=== PATIENT | male | born 1980 | race Caucasian/White ===

== ENCOUNTER 2016-11-06 16:55 | Emergency (ER) | payer OTHER ==
[~2016-11-06] VITALS: Ht 167.6 cm; Wt 67.1 kg
[~2016-11-06 16:55] MED LIST: ALBUTEROL0.09 MG/A2 IH; ANAPROX DS550 MG PO; AUGMENTIN 875875 MG PO; BENADRYL25 MG PO; DAYPRO600 M1 PO; HYDROCODONE BIT1 T11 PO; KEFLEX500 MG PO; MOTRIN600 MG PO; MOTRIN800 MG PO; NORCO 5-325 TA1 EACH PO; PERCOCET 325 MG1 TA6 PO; PRILOSEC20 MG PO; ROBAXIN750 MG PO; TRAMADOL HCL50 MG PO; VICODIN 5/500 505 MG PO; [UNRECOGNIZED DRUG - OTHER] PO
[2016-11-06 17:39] LABS: BASO # 0.1 10*3/uL (0.0-0.1); BASO % 0.6 % (0.0-1.0); EOS # 0.1 10*3/uL (0.0-0.4); EOS % 0.9 % (1.0-4.0); HEMATOCRIT 43.9 % (42.0-52.0); LYMPH % 20.8 % (27.0-41.0); MEAN CELL VOLUME 94.8 fl (80.0-94.0); MEAN CORPUSCULAR HGB 32.4 pg (27.0-31.0); MEAN CORPUSCULAR HGB CONC 34.2 g/dl (33.0-37.0); MEAN PLATELET VOLUME 9.8 fl (9.6-12.3); MONO # 0.6 10*3/uL (0.1-1.0); MONO % 6.6 % (3.0-9.0); NEUT # 6.8 10*3/uL (2.3-7.9); NEUT % 70.8 % (47.0-73.0); PLATELET COUNT AUTOMATED 170 10*3/uL (130-400); RED BLOOD COUNT 4.63 10*6/uL (4.50-5.90); RED CELL DISTRI WIDTH 13.9 % (0-14.5); WHITE BLOOD COUNT 9.7 10*3/uL (4.8-10.8)
[2016-11-06 17:55] LABS: ALBUMIN 3.8 gm/dl (3.1-4.5); ALKALINE PHOSPHATASE 73 U/L (45-117); BILIRUBIN, TOTAL 0.3 mg/dl (0.2-1.0); BUN 12 mg/dl (7-24); CARBON DIOXIDE 30 mmol/L (21-32); CHLORIDE 106 mmol/L (98-107); EST GLOM FILT AFRICAN AMERICAN > 60 ml/min; GLUCOSE 86 mg/dL (65-99); POTASSIUM 3.8 mmol/L (3.5-5.1); SGOT/AST 27 IU/L (3-35); SGPT/ALT 19 U/L (12-78); SODIUM 141 mmol/L (136-145); TOTAL PROTEIN 7.7 gm/dL (6.4-8.2)
[2016-11-06] MEDS ORDERED: CEPHALEXIN500 M1 PO (19:45)
[2016-11-06] MEDS ORDERED: HYDROCODONE BIT1 T11 PO (19:45)
== END 2016-11-06 19:46 | disposition home or self-care (01) ==
LOC: ED 16:55
PROVIDERS: Registered Nurse
DX: N49.2 Inflammatory disorders of scrotum (principal); F17.200 Nicotine dependence, unspecified, uncomplicated; Z79.899 Other long term (current) drug therapy; Z98.890 Other specified postprocedural states

== ENCOUNTER → 2016-11-23 | Outpatient (CLI) | payer OTHER ==
[~2016-11-23] MED LIST changes: +CEPHALEXIN500 M1 PO
== END | disposition home or self-care (01) ==
LOC: US 17:57
DX: N50.89 Other specified disorders of the male genital organs (principal); N49.2 Inflammatory disorders of scrotum; N40.1 Benign prostatic hyperplasia with lower urinary tract symptoms; N32.89 Other specified disorders of bladder

== ENCOUNTER → 2017-03-05 | Outpatient (CLI) | payer OTHER ==
[2017-03-05 10:46] LABS: BASO # 0.1 10*3/uL (0.0-0.1); BASO % 0.9 % (0.0-1.0); EOS # 0.3 10*3/uL (0.0-0.4); EOS % 3.8 % (1.0-4.0); HEMATOCRIT 44.2 % (42.0-52.0); HEMOGLOBIN 15.1 g/dl (14.0-18.0); LYMPH # 2.2 10*3/uL (1.3-4.4); LYMPH % 31.5 % (27.0-41.0); MEAN CELL VOLUME 97.1 fl (80.0-94.0); MEAN CORPUSCULAR HGB 33.2 pg (27.0-31.0); MEAN CORPUSCULAR HGB CONC 34.2 g/dl (33.0-37.0); MEAN PLATELET VOLUME 10.1 fl (9.6-12.3); MONO # 0.7 10*3/uL (0.1-1.0); MONO % 10.8 % (3.0-9.0); NEUT # 3.6 10*3/uL (2.3-7.9); NEUT % 52.7 % (47.0-73.0); PLATELET COUNT AUTOMATED 189 10*3/uL (130-400); RED BLOOD COUNT 4.55 10*6/uL (4.50-5.90); RED CELL DISTRI WIDTH 13.2 % (0-14.5); WHITE BLOOD COUNT 6.9 10*3/uL (4.8-10.8)
[2017-03-05 11:02] LABS: ALBUMIN 3.4 gm/dl (3.1-4.5); ALKALINE PHOSPHATASE 61 U/L (45-117); BUN 18 mg/dl (7-24); CHLORIDE 105 mmol/L (98-107); CREATININE 0.83 mg/dL (0.70-1.30); POTASSIUM 4.4 mmol/L (3.5-5.1); SGOT/AST 26 IU/L (3-35); SGPT/ALT 33 U/L (12-78); SODIUM 138 mmol/L (136-145); TOTAL PROTEIN 7.5 gm/dL (6.4-8.2)
== END | disposition home or self-care (01) ==
LOC: LAB 10:02
PROVIDERS: Urology
DX: R31.9 Hematuria, unspecified (principal); R53.83 Other fatigue

== ENCOUNTER 2017-08-09 19:47 | Emergency (ER) | payer OTHER ==
[~2017-08-09] VITALS: Wt 68.0 kg
[2017-08-09] MEDS ORDERED: Motrin,Rufen800 MG PO (22:22)
[2017-08-09] MEDS ORDERED: AMOXICILLIN500 M2 PO (22:22)
[2017-08-09] MEDS ORDERED: FLONASE ALLERG9.9 ML NAS (22:22)
== END 2017-08-09 22:25 | disposition home or self-care (01) ==
LOC: ED 19:47
DX: R51 Headache (principal); J32.9 Chronic sinusitis, unspecified; Z79.899 Other long term (current) drug therapy

== ENCOUNTER 2019-04-11 21:10 | Emergency (ER) | payer OTHER ==
[~2019-04-11] VITALS: Ht 170.1 cm; Wt 68.0 kg
--- NOTE | ~2019-04-11 | EKG ---
[place], [place] ELECTROCARDIOGRAM REPORT NAME: KEVIN ELLIS UNIT #: [id number] ROOM: DOCTOR: EPIPHANY DRAFT REPORT BIRTHDATE: [birth year] [facility] Test Date: 2019-04-11 Test Time: 21:51:53 Pat Name: KEVIN ELLIS Department: ER Room: Gender: M Venue Coordinator: EKG.NE : 1980 Requested By: SENTHIL VANCE PA-C Order Number: [id number] Reading MD: Shun Morales MD Measurements Intervals [place] Rate: 53 P: 69 ID: [id number] QRS: 58 QRSD: 88 T: 59 QT: 409 QTc: 384 Interpretive Statements Sinus rhythm Nonspecific ST T changes Electronically Signed On 04-13-2019 10:12:34 PST by Shun Morales MD CM:EKGRPT:ELECTROCARDIOGRAM REPORT [id number] SENTHIL VANCE PA-C EPIPHANY DRAFT REPORT SENTHIL VANCE PA-C
[~2019-04-11 21:10] MED LIST changes: +AMOXICILLIN500 M2 PO; +FLONASE ALLERG9.9 ML NAS; +Motrin,Rufen800 MG PO
[2019-04-11] MEDS ORDERED: PREDNISONE10 MG PO (22:09)
[2019-04-11] MEDS ORDERED: PROAIR HFA8.5 GM INH (22:09)
[2019-04-11] MEDS ORDERED: ZITHROMAX250 MG PO (22:09)
== END 2019-04-11 22:30 | disposition home or self-care (01) ==
LOC: ED 21:10
DX: J45.909 Unspecified asthma, uncomplicated (principal); K21.9 Gastro-esophageal reflux disease without esophagitis; F17.200 Nicotine dependence, unspecified, uncomplicated

== ENCOUNTER → 2020-06-27 | Outpatient (CLI) | payer OTHER ==
[~2020-06-27] MED LIST changes: +CEFDINIR300 MG PO; +PREDNISONE10 MG PO; +PROAIR HFA8.5 GM INH; +ZITHROMAX250 MG PO
[2020-06-27 08:52] LABS: BASO # 0.1 10*3/uL (0.0-0.1); BASO % 0.9 % (0.0-1.0); EOS # 0.2 10*3/uL (0.0-0.4); EOS % 1.6 % (1.0-4.0); HEMATOCRIT 47.4 % (42.0-52.0); LYMPH # 1.8 10*3/uL (1.3-4.4); LYMPH % 19.1 % (27.0-41.0); MEAN CELL VOLUME 94.8 fl (80.0-94.0); MEAN CORPUSCULAR HGB CONC 33.8 g/dl (33.0-37.0); MEAN PLATELET VOLUME 9.9 fl (9.6-12.3); MONO # 0.7 10*3/uL (0.1-1.0); MONO % 7.5 % (3.0-9.0); NEUT # 6.6 10*3/uL (2.3-7.9); NEUT % 70.6 % (47.0-73.0); PLATELET COUNT AUTOMATED 196 10*3/uL (130-400); RED CELL DISTRI WIDTH 13.3 % (0-14.5); WHITE BLOOD COUNT 9.4 10*3/uL (4.8-10.8)
[2020-06-27 09:05] LABS: CHLORIDE 107 mmol/L (98-107); POTASSIUM 4.2 mmol/L (3.5-5.1); SODIUM 136 mmol/L (136-145)
[2020-06-27 09:22] LABS: ALBUMIN 3.4 gm/dl (3.1-4.5); ALKALINE PHOSPHATASE 78 U/L (45-117); BUN 18 mg/dl (7-24); CREATININE 1.07 mg/dL (0.70-1.30); SGOT/AST 23 IU/L (3-35); SGPT/ALT 18 U/L (12-78); T3 UPTAKE 38 % (31-39); THYROXINE (T4) TOTAL 7.9 ug/dl (4.5-12.1); TOTAL PROTEIN 7.5 gm/dL (6.4-8.2)
[2020-06-28 05:06] LABS: FOLLICLE STIMULATING HORMONE 6.6 mIU/mL (1.5-12.4); LUTEINIZING HORMONE 6.6 mIU/mL (1.7-8.6); PROGESTERONE 0.1 ng/mL (0.0-0.5); PROLACTIN 20.8 ng/mL (4.0-15.2)
== END | disposition home or self-care (01) ==
LOC: LAB 08:15
PROVIDERS: ATTEND Urology
DX: R53.82 Chronic fatigue, unspecified (principal)

== ENCOUNTER 2020-07-06 15:30 | Emergency (ER) | payer OTHER ==
[~2020-07-06] VITALS: Ht 165.1 cm; Wt 65.8 kg
[~2020-07-06 15:30] MED LIST changes: -CEFDINIR300 MG PO
[2020-07-06] MEDS ORDERED: CEFDINIR300 MG PO (16:09)
== END 2020-07-06 16:21 | disposition home or self-care (01) ==
LOC: ED 15:30
DX: H66.92 Otitis media, unspecified, left ear (principal); F17.200 Nicotine dependence, unspecified, uncomplicated; Z79.2 Long term (current) use of antibiotics

== ENCOUNTER → 2020-07-11 | Outpatient (CLI) | payer OTHER ==
[~2020-07-11] MED LIST changes: +CEFDINIR300 MG PO
== END | disposition home or self-care (01) ==
LOC: US 13:00
PROVIDERS: ATTEND Urology
DX: N28.89 Other specified disorders of kidney and ureter (principal); N50.819 Testicular pain, unspecified

== ENCOUNTER 2021-11-07 11:56 | Emergency (ER) | payer OTHER ==
[2021-11-07] MEDS ORDERED: CEPHALEXIN500 M1 PO (12:25)
== END 2021-11-07 12:40 | disposition home or self-care (01) ==
LOC: ED 11:56
DX: H66.41 Suppurative otitis media, unspecified, right ear (principal)

== ENCOUNTER 2022-05-13 14:37 | Emergency (ER) | payer OTHER ==
[~2022-05-13] VITALS: Wt 65.8 kg
[2022-05-13] MEDS ORDERED: AMOX-CLAV 875-1 EACH PO (16:37)
== END 2022-05-13 16:45 | disposition home or self-care (01) ==
LOC: ED 14:37
DX: J32.8 Other chronic sinusitis (principal); Z90.89 Acquired absence of other organs